=== PATIENT | male | born 1955 | race Caucasian/White ===

== ENCOUNTER → 2016-11-05 | Outpatient (CLI) | payer BC ==
[~2016-11-05] MED LIST: AC500T PO; ALLO300T2 PO; AMLO1TAB65 PO; ASPI-586 PO; ATOR40TA59 PO; AZIT250T81 PO; CYAN100072 PO; GAS X; HYDR-3754 PO; INDA1.25 PO; LIRA0.6P SQ; LTN005OP2 OU; MAGN400T26 PO; METF500T4 PO; OMEG1CAP24 PO; SIME125C PO; STEROID EYE DROP; TML5OP2.5 OU
[2016-11-05 17:48] VITALS: BP 141/83
--- NOTE | 2016-11-05 17:48 | Urgent Care T Sheet Gen (E) ---
Intake General Temperature (Fahrenheit): 97.2 Pulse: 119 Blood Pressure Systolic: 141 Blood Pressure Diastolic: 83 Respirations: 20 SPO2: 96 Chief Complaint: sinus pressure and ear pain Source: Patient History of Present Illness Initial Comments Pt notes that 2 weeks ago he developed sinus pressure and congestion with slight cough. Had a low grade fever early on but that has resolved. He notes in the last 1 week his right ear has been bothering him. Allergies: Coded Allergies: No Known Allergies (Verified Allergy, 06/15/12) Home Meds Reported Medications Simethicone (Gas-X)125 Mg [id number] Mg PO PRN 06/19/12 Hydrocodone Bit/Acetaminophen (Lortab 5 Mg)1 Tab Tab2 Tab PO Q 4H PRN Pain 06/19/12 Liraglutide (Victoza 2-Tony)0.6 Mg/0.1 Ml Pen.injctr1.2 Mg SQ DAILY 01/16/12 Acetaminophen (Tylenol Tab)500 Mg [id number] Mg PO PRN 01/16/12 Latanoprost (Xalatan 0.005% Ophthalmic Solution)2.5 Ml Soln1 Drop OU HS 01/16/12 [place]-3 Fatty Acids/Fish Oil ([place] 3 Fish Oil Softgel)1 Each Capsule.dr1 Each PO DAILY@1700 01/16/12 Indapamide 1.25 Mg Tablet1.25 Mg PO DAILY@1700 01/16/12 Amlodipine Bes/Olmesartan Med (Dionte 10-40 mg Tablet)1 Each Tablet1 Each PO DAILY @1700 01/16/12 Timolol Maleate (Timoptic 0.5% Ophthalmic Solution)5 Ml Soln1 Drop OU DAILY 01/16/12 Metformin HCl 500 Mg Tablet1,000 Mg PO BID WITH MEALS 01/16/12 Aspirin (Aspir 81)81 Mg Tablet.dr81 Mg PO DAILY 01/16/12 Cyanocobalamin (Vitamin B-12) (B-12)1,000 Mcg Tablet.er2,000 Mcg PO DAILY 01/16/12 Magnesium Oxide (Mag-Oxide)400 Mg [id number] Mg PO DAILY 01/16/12 Atorvastatin Calcium 40 Mg Dhuvpx80 Mg PO DAILY 01/16/12 Allopurinol 300 Mg [id number] Mg PO DAILY 01/16/12 Respiratory Constitutional Symptoms: See HPI EENTM: See HPI Nose Congestion Respiratory: See HPI Cough Cardiovascular: No symptoms reported Gastrointestinal/Abdominal: No symptoms reported Genitourinary: No symptoms reported Skin: No symptoms reported All Other Systems Reviewed Remaining Systems: All other systems reviewed with negative findings Past Lkqfdth-Jqlapv-Iwincp Hx Patient's Social History Alcohol Use: Denies Use Smoking Status: Never smoker Surgeries/Hospitalizations Hospitalization/Surgery Hx: Pilonidal cyst procedure 1976, laparoscopic knee surgery 1999, procedure to length his Achilles tendon 1971, colonoscopy 2009 Respiratory Respiratory History: None Cardiovascular Cardiovascular History: Hypertension, Hypercholesterolemia Neuro/Muscular Neuro/Muscular History: Arthirits Comment: RA and Ankylosing spondylitis,cp Reproductive System Sexually Transmitted Diseases: No Genitouinary Genitourinary History: Urgency Comment: onset this week Gastrointestinal GI/Endocrine History: Gallbladder problems, Hemorrhoids Diabetes Diabetes: NIDDM Oral med controlled Onset: 2004 HEENT Impaired Vision: Glasses Hearing Impaired: None Integumentary Integumentary History: None Cancer History of Cancer?: No Psychosocial Behavior Disorders: None Physical Exam Physical Exam General Appearance: WD/WN No apparent distress Eyes, Ears, Nose, Throat Ex: PERRL/EOMI TM abnormal (R) (dull TM with mild erythema; Left TM dull but no erythema) Neck Exam: Non tender Full range of motion Normal inspection Normal thyroid Respiratory Exam: Lungs clear Normal breath sounds Cardiovascular Exam: Regular rate, rhythm No edema GI/ Exam: Non tender Normal bowel sounds No distention Skin Exam: No rashes Departure Urgent Care Impression Chief Complaint: sinus pressure and ear pain Impression: Primary Impression: Sinusitis, acute Qualified Code: J01.00 - Acute maxillary sinusitis, unspecified Departure Disposition: HOME OR SELF-CARE Condition: Stable Referrals: Alexsander Pizano MD (PCP) Additional Instructions: Take Z-Tony as prescribed. Continue antihistamine and nasal steroid spray. Follow-up with Primary Care Provider in 7-10 days. Return to ER or UC if symptoms get worse or further concern. Discharge instructions verbally given to patient. Patient verbalizes understanding of discharge instructions. Scripts Azithromycin (Zithromax Z-Tony)6 Tab/Pkt [id number] Mg PO SEE INSTRUCTIONS Infection #6 PKT Ref 0 Day One: Take 2 tablets by mouth Days Two-Five: Take 1 tablet by mouth Prov:FELIPE VALLADARES 11/05/16 End of report . FELIPE VALLADARES Nov 05, 2016 17:48
== END ==
LOC: MHUC 17:19
PROVIDERS: ATTEND Physician Assistant
DX: J01.00 Acute maxillary sinusitis, unspecified (principal)
CPT/HCPCS: 99213